=== PATIENT | female | born 1950 | race Caucasian/White ===

== ENCOUNTER → 2017-09-26 | Day surgery (SDC) | payer MEDICARE ==
[~2017-09-26] MED LIST: BUPIVACAINE HCL PF 0.75% 10 ML VIAL ONE; CYMB30CA PO; GABA300C3 PO; LIDOCAINE 2%/EPINEPHrine PF 1:200,000 20ML SDV ONE; LIDOCAINE HCL 2% 50 ML VIAL ONE; LORTA5 PO; MAXZ25 PO; MIDAZOLAM HCL 2 MG/2 ML VIAL ONE; ONDANSETRON HCL 4 MG/2 ML VIAL IV PUSH ONE; PROPOFOL 200 MG/20 ML AMP IV ONE; ZOLP10TA3 PO; ceFAZolin INJ 1,000 MG VIAL ONE
--- NOTE | 2017-09-26 14:15 | TN ---
cc: JIM OLSON M.D. DATE OF SURGERY: September 26, 2017 PREOPERATIVE DIAGNOSIS Left foot hallux valgus deformity, painful bunion. POSTOPERATIVE DIAGNOSIS Left foot hallux valgus deformity, painful bunion. PROCEDURE Left foot hallux valgus correction with Chevron bunionectomy. SURGEON Jim Olson MD FURNACE REPAIRER HELPER SHAVON Najera ANESTHESIA General, regional block Dr. Damon. TOURNIQUET TIME 29 minutes at 200 mmHg. COMPLICATIONS None. ESTIMATED BLOOD LOSS None. CONDITION Stable. PLAN OF ACTIVITY Per orders. PROCEDURE My case management assistant Dottie Coleman, SHAVON was present for the entire surgical case. She was medically necessary for the entire case because of the complexity of the case and to facilitate the performance of the procedure. The DIRECTOR OF WOMEN'S SERVICES at the back table was not a skill set for this case to manipulate the instruments, e.g., the multiple different types of soft tissue retractors, oscillating saws, podiatric osteotomes and the threaded Steinmann pin. The patient was brought in the operating room and had satisfactory anesthesia by Dr. Damon, Department of Anesthesia. The patient also had a regional foot block. The left foot and lower extremities were all prepped and draped in the usual sterile manner. Curvilinear incision was made over the medial aspect of the big toe MTP joint. Dissection continued through skin and subcu tissue. Great care was made to protect the dorsal and plantar sensory nerves. Capsulotomy was performed. Oscillating saw was used to remove the medial bony eminence. A 1.5 mm drill bit was then used for the apex of the osteotomy. Oscillating saw was then used to create a Chevron bunionectomy, approximately 60 degree angulation on the angle. The podiatric osteotomes were then used to complete the osteotomy. The distal metatarsal head was then displaced laterally. It was held in fixation with a 1.1 mm threaded Steinmann pin. Intraoperative x-rays showed appropriate positioning of the pin and correction of the hallux valgus deformity by Chevron bunionectomy. The pin was clipped at the base of the distal first metatarsal. The medial eminence at the displacement of the Chevron bunionectomy was then contoured with the oscillating saw to smooth it out. A capsular repair was used using 3-0 Vicryl suture. Subcutaneous tissue was closed in layers with 3-0 Vicryl, skin was approximated with 3-0 Nylon. Tourniquet was deflated. The wound itself was dry. 3-0 Nylon was used for the skin and sterile dressings were applied. The patient tolerated the procedure well and arrived in the recovery room in stable and satisfactory condition. X-ray left foot three views AP, oblique and lateral view shows status post satisfactory left foot Chevron bunionectomy, Chevron osteotomy, satisfactory placement of smooth Steinmann pin. MD ADITYA Ybarra/TLDianne /1:36 PM /1:44 PM
== END | disposition home or self-care (01) ==
LOC: ESDC 11:09
PROVIDERS: ATTEND Orthopaedic Surgery Orthopaedic Surgery of the Spine
DX: M20.12 Hallux valgus (acquired), left foot (principal); M21.612 Bunion of left foot
CPT/HCPCS: 01480; 28296; 73630; 76000; J0690; J2250; J2405; J3010